=== PATIENT | male | born 1995 | race Caucasian/White ===

== ENCOUNTER 2016-04-30 00:28 | Emergency (ER) | payer MEDICAID, OTHER ==
[2016-04-30] MEDS ORDERED: ASPIRIN 81 MG CHEWABLE TAB PO ONE (00:45)
[2016-04-30] MEDS ORDERED: IPRATROPIUM/ALBUTEROL 3 ML DEYVIAL IH ONE (00:46)
--- NOTE | 2016-04-30 00:49 | EDPHY ---
H & P Stated Complaint: COUGH 3 WKS,NOW LEFT CHEST PAIN, DIZZY - Personal History Current Tetanus/Diphtheria Vaccine: Yes - Medical/Surgical History Hx Asthma: No Hx Chronic Respiratory Disease: No Hx Diabetes: No Hx Cardiac Disease: No Hx Renal Disease: No Hx Cirrhosis: No Hx Alcoholism: No Hx HIV/AIDS: No Hx Splenectomy or Spleen Trauma: No Other PMH: none - Social History Smoking Status: Current some day smoker Time Seen by Provider: 04/30/16 00:36 HPI/ROS: CHIEF COMPLAINT: Left-sided chest pain, cough x3 weeks HISTORY OF PRESENT ILLNESS: 21-year-old male complaining of left-sided chest pain and nonproductive cough for 3 weeks. No dyspnea. No back pain. No syncope or near syncope. Pain is reproducible with deep inspiration with palpation of the left sternal border. Smokes marijuana intermittently. No cocaine use. No family or personal history of premature coronary artery disease. No family or personal history of coagulopathic disorder. No calf pain or cramping. REVIEW OF SYSTEMS: A ten point review of systems was performed and is negative with the exception of the items mentioned in the HPI PAST MEDICAL & SURGICAL HISTORY: no known history of coagulopathic disorder, coronary artery disease. SOCIAL HISTORY: smokes marijuana intermittently. No cocaine use. No tobacco use. FAMILY HISTORY: No family history of coagulopathic disorder or premature coronary artery disease. PHYSICAL EXAM (Prior to examination, patient consented to physical exam, hands were washed and my usual and customary physical exam procedures followed) 1) GENERAL: Well-developed, well-nourished, alert and oriented. Appears anxious 2) HEAD: Normocephalic, atraumatic 3) HEENT: Pupils equal, round, reactive to light bilaterally. Sclera anicteric. Nasopharynx, oropharynx, clear, no lesions. Ears bilaterally with normal tympanic membranes. 4) NECK: Full range of motion, no meningeal signs. No bruit 5) LUNGS: Clear auscultation bilaterally, no wheezes, no rhonchi, no retractions. Left chest wall tender to palpation at the costosternal border 6) HEART: Regular rate and rhythm, no murmur, no heave, no gallop. 7) ABDOMEN: No guarding, no rebound, no focal tenderness, negative McBurney's, negative Goetz's, negative Rovsing's, negative peritoneal sign, 8) MUSCULOSKELETAL: No peripheral edema or discoloration. negative Homans no palpable cord 9) BACK: No CVA tenderness, . 10) SKIN: No rash, no petechiae. DIFFERENTIAL DIAGNOSIS: In no particular order, including but not limited to myocardial ischemia, pulmonary embolus, chest wall pain, pleural inflammation and pulmonary infectious causes. (Makayla Feliz) Constitutional: Initial Vital Signs Temperature (C) 36.9 C 04/30/16 00:32 Heart Rate 107 H 04/30/16 00:32 Respiratory Rate 24 H 04/30/16 00:32 Blood Pressure 111/74 04/30/16 00:32 O2 Sat (%) 95 04/30/16 00:32 O2 Delivery Mode Room Air Allergies/Adverse Reactions: No Known Allergies Allergy (Unverified 04/30/16 00:32) Home Medications: Medication Instructions Recorded AZITHROMYCIN [Z-PACK] 500 mg PO DAILY #1 packet 04/30/16 Albuterol [Proventil Inhaler HFA 1 - 2 puffs IH Q4PRN PRN #1 mdi 04/30/16 (*)] Benzonatate [Tessalon Pearles (RX)] 200 mg PO TID PRN #15 cap 04/30/16 Ibuprofen [Motrin (*)] 600 mg PO Q6 #15 tab 04/30/16 Medical Decision Making ED Course/Re-evaluation: 2:10 a.m.: Re-evaluation. Discussed his diagnostic results, normal sinus EKG, normal chest x-ray negative D-dimer negative troponin. Think that pulmonary embolus less likely in this patient. Doubt aortic dissection. Doubt [place]. He has focal tenderness left sternal border which may be secondary to acute costochondritis. We discussed NSAIDs. I also think that given the longevity of his symptoms of cough a trial of antibiotics is appropriate. Prescribed azithromycin as well as Tessalon Perles. Usual and customary chest pain precautions instructions provided. Discussed case Dr. Trevizo in ER> (Makayla Feliz) PHYSICIAN DOCUMENTATION: The patient was evaluated and managed by the Physician Blood Tester. My co- signature indicates that I have reviewed this chart and I agree with the findings and plan of care as documented. I am the secondary supervising physician. (Ruby Trevizo) - Data Points Laboratory Results: Laboratory Results 04/30/16 01:03 04/30/16 01:03 04/30/16 01:03 WBC 10.37 H 10^3/uL (3.80-9.50) RBC 5.14 10^6/uL (4.40-6.38) Hgb 15.5 g/dL (13.7-17.5) Hct 45.6 % (40.0-51.0) MCV 88.7 fL (81.5-99.8) MCH 30.2 pg (27.9-34.1) MCHC 34.0 g/dL (32.4-36.7) RDW 12.3 % (11.5-15.2) Plt Count 246 10^3/uL (150-400) MPV 10.1 fL (8.7-11.7) Neut % (Auto) 74.9 H % (39.3-74.2) Lymph % (Auto) 14.1 L % (15.0-45.0) [place] % (Auto) 10.0 % (4.5-13.0) Eos % (Auto) 0.2 L % (0.6-7.6) Baso % (Auto) 0.4 % (0.3-1.7) Nucleat RBC Rel Count 0.0 % (0.0-0.2) Absolute Neuts (auto) 7.77 H 10^3/uL (1.70-6.50) Absolute Lymphs (auto) 1.46 10^3/uL (1.00-3.00) Absolute Monos (auto) 1.04 H 10^3/uL (0.30-0.80) Absolute Eos (auto) 0.02 L 10^3/uL (0.03-0.40) Absolute Basos (auto) 0.04 10^3/uL (0.02-0.10) Absolute Nucleated RBC 0.00 10^3/uL (0-0.01) Immature Gran % 0.4 % (0.0-1.1) Immature Gran # 0.04 10^3/uL (0.00-0.10) D-Dimer < 0.27 ug/mLFEU (0.00-0.50) Sodium 143 mEq/L (134-144) Potassium 3.6 mEq/L (3.5-5.2) Chloride 107 mEq/L (97-110) Carbon Dioxide 22 mEq/l (22-31) Anion Gap 14 mEq/L (8-16) BUN 15 mg/dL (7-23) Creatinine 0.9 mg/dL (0.7-1.3) Estimated GFR > 60 Glucose 102 H mg/dL (70-100) Calcium 9.2 mg/dL (8.5-10.4) Troponin I < 0.012 ng/mL (0-0.034) Medications Given: Discontinued Medications Albuterol/Ipratropium (Duoneb) 3 ml IH EDNOW ONE Stop: 04/30/16 00:47 Last Admin: 04/30/16 01:05 Dose: 3 ml Aspirin (Aspirin) 324 mg PO EDNOW ONE Stop: 04/30/16 00:46 Last Admin: 04/30/16 01:05 Dose: 324 mg Departure - Departure Disposition: Home, Routine, Self-Care Clinical Impression: Cough, Acute costochondritis Condition: Good Instructions: Chest Pain (ED) Additional Instructions: Seek medical attention if you develop new or worsening chest pain, if you develop new or worsening shortness of breath, or any other symptoms that concern you. Referrals: [facility] [Outside] - 2-3 days, call for appt. Prescriptions: Ibuprofen [Motrin (*)] 600 mg PO Q6 #15 tab Albuterol [Proventil Inhaler HFA (*)] 1 - 2 puffs IH Q4PRN PRN #1 mdi PRN Reason: Cough, Moderate Benzonatate [Tessalon Pearles (RX)] 200 mg PO TID PRN #15 cap PRN Reason: Cough, Moderate AZITHROMYCIN [Z-PACK] 500 mg PO DAILY #1 packet
--- NOTE | 2016-04-30 01:01 | CPEKG ---
Heart Rate: 92 RR Interval: 652 P-R Interval: 132 QRSD Interval: 114 QT Interval: 336 QTC Interval: 416 P [place]: 21 QRS [place]: 85 T Wave [place]: 28 EKG Severity - ABNORMAL ECG - EKG Impression: SINUS RHYTHM EKG Impression: NONSPECIFIC INTRAVENTRICULAR CONDUCTION DELAY Electronically Signed By: Ruby Trevizo 30-Apr-2016 08:18:57
[2016-04-30 01:13] LABS: % IMMATURE GRANULYOCYTES 0.4 % (0.0-1.1); ABSOLUTE IMMATURE GRANULOCYTES 0.04 10^3/uL (0.00-0.10); ADD DIFF? NO; ADD MORPH? NO; ADD SCAN? NO; ATYPICAL LYMPHOCYTE FLAG 20 (0-99); FRAGMENT RBC FLAG 0 (0-99); HEMATOCRIT 45.6 % (40.0-51.0); HEMOGLOBIN 15.5 g/dL (13.7-17.5); LEFT SHIFT FLG 10 (0-99); LIPEMIA HEMOLYSIS FLAG 90 (0-99); MEAN CELL HEMOGLOBIN 30.2 pg (27.9-34.1); MEAN CELL VOLUME 88.7 fL (81.5-99.8); MEAN PLATELET VOLUME 10.1 fL (8.7-11.7); PLATELET CLUMPS FLAG 30 (0-99); PLATELET COUNT 246 10^3/uL (150-400); RED BLOOD CELL COUNT 5.14 10^6/uL (4.40-6.38); RED CELL DISTRIBUTION WIDTH 12.3 % (11.5-15.2)
[2016-04-30 01:28] LABS: ANION GAP 14 mEq/L (8-16); CALCIUM 9.2 mg/dL (8.5-10.4); CARBON DIOXIDE 22 mEq/l (22-31); CHLORIDE 107 mEq/L (97-110); CREATININE 0.9 mg/dL (0.7-1.3); GLOMERULAR FILTRATION RATE > 60; GLUCOSE 102 mg/dL (70-100); POTASSIUM 3.6 mEq/L (3.5-5.2); SODIUM 143 mEq/L (134-144)
[2016-04-30 01:40] LABS: TROPONIN I < 0.012 ng/mL (0-0.034)
[2016-04-30 02:43] VITALS: BP 121/74; PULSE 66; RESP 18; TEMP 97.9; O2SAT 96
--- NOTE | 2016-04-30 08:27 | DX ---
Chest, PA and Lateral History: Chest pain Comparison: None Findings: Mildly prominent lung volumes and bronchial wall thickening suggest airways disease. A smal l 7-8 mm nodular density in the right midlung overlying the anterior right third rib, where it crosse s the posterior right seventh rib may represent a bone island in the rib or a small pulmonary nodule, possibly a small mucous plug. Lungs are clear, without infiltrate or consolidation. Heart size and p ulmonary vascularity are normal. There is no adenopathy or mass lesion. There is no pleural effusion or pneumothorax. Bones are unremarkable for age. Impression: 1. Suspect airways disease. 2. Small right midlung nodular density. If there are any old outside x-rays, we would be happy to rev iew them to assess for interval change. Consider short interval x-ray evaluation including a PA chest and right rib x-rays to assess for change. Results discussed with Dr. Beal at 8:24 AM.
== END 2016-04-30 02:43 | disposition home or self-care (01) ==
DX: R05 Cough (principal); M94.0 Chondrocostal junction syndrome [Tietze]; F17.200 Nicotine dependence, unspecified, uncomplicated; I25.10 Atherosclerotic heart disease of native coronary artery without angina pectoris

== ENCOUNTER 2018-06-07 22:01 | Emergency (ER) | payer MEDICAID ==
[2018-06-07 22:06] VITALS: BP 150/72
[2018-06-07] MEDS ORDERED: IPRATROPIUM/ALBUTEROL 3 ML DEYVIAL IH ONE (22:47)
--- NOTE | 2018-06-07 22:51 | EDPHY ---
H & P Stated Complaint: cough, SOB, sore throat, tight in chest,fever-like x4 days Time Seen by Provider: 06/07/18 22:08 HPI/ROS: CHIEF COMPLAINT: Cough, shortness of breath HISTORY OF PRESENT ILLNESS: 23-year-old male presents with cough and shortness of breath. Onset of cough, runny nose and sore throat 1 week ago. Gradually increasing moderate cough, associated with shortness of breath yesterday evening. No shortness of breath today. Subjective fever and chills. Tolerating oral fluids well. Did not receive a flu vaccination this year. REVIEW OF SYSTEMS: complete 10 point ROS reviewed and is negative except for the noted elements in the HPI - Personal History Current Tetanus/Diphtheria Vaccine: Yes Current Tetanus Diphtheria and Acellular Pertussis (TDAP): Yes Tetanus Vaccine Date: 2017 - Medical/Surgical History Hx Asthma: No Hx Chronic Respiratory Disease: No Hx Diabetes: No Hx Cardiac Disease: No Hx Renal Disease: No Hx Cirrhosis: No Hx Alcoholism: No Hx HIV/AIDS: No Hx Splenectomy or Spleen Trauma: No Other PMH: none - Social History Smoking Status: Current some day smoker Alcohol Use: Sober Drug Use: Marijuana - Physical Exam Exam: General Appearance: Alert, pleasant, nontoxic-appearing Eyes: Pupils equal and round, no conjunctival injection ENT, Mouth: Mucous membranes moist Neck: Normal inspection Respiratory: expiratory wheezing at the left lung base Cardiovascular: Regular rate and rhythm Gastrointestinal: Abdomen is soft and nontender Neurological: A&O, nonfocal, normal gait Skin: Warm and dry Extremities: Normal inspection Psychiatric: Mood and affect normal Constitutional: Initial Vital Signs Heart Rate 90 06/07/18 22:03 Respiratory Rate 20 06/07/18 22:03 Blood Pressure 150/72 H 06/07/18 22:03 O2 Sat (%) 93 06/07/18 22:03 O2 Delivery Mode Room Air Allergies/Adverse Reactions: No Known Allergies Allergy (Unverified 06/07/18 22:03) Home Medications: Medication Instructions Recorded Azithromycin [Zithromax] 250 mg PO DAILY #4 tab 06/07/18 Medical Decision Making - Diagnostics Imaging Results: Chest x-ray independently reviewed by me reveals a left lower lobe infiltrate. Imaging: I viewed and interpreted images myself ED Course/Re-evaluation: This patient presents with cough, shortness of breath and wheezing. Chest x- ray reveals a possible left lower lobe infiltrate. He is nontoxic-appearing and oxygen saturation is normal. Tolerating oral fluids well. A DuoNeb was given. Chest CTA after duoneb. Prescription for Zithromax for possible pneumonia. Warning signs discussed. - Data Points Medications Given: Discontinued Medications Albuterol Sulfate (Proventil Inh [place]) 1 mdi TAKEHOME EDNOW ONE Stop: 06/07/18 22:53 Last Admin: 06/07/18 23:07 Dose: 1 mdi Albuterol/Ipratropium (Duoneb) 3 ml IH EDNOW ONE Stop: 06/07/18 22:48 Last Admin: 06/07/18 23:06 Dose: 3 ml Azithromycin (Zithromax) 500 mg PO EDNOW ONE PRN Reason: Protocol Stop: 06/07/18 22:54 Last Admin: 06/07/18 23:05 Dose: 500 mg Departure - Departure Disposition: Home, Routine, Self-Care Clinical Impression: Pneumonia Qualifiers: Pneumonia type: due to unspecified organism Laterality: left Lung location: lower lobe of lung Qualified Code(s): J18.1 - Lobar pneumonia, unspecified organism Condition: Good Instructions: Albuterol (By breathing), Bacterial Pneumonia (ED) Additional Instructions: Albuterol inhaler 2 puffs every 6 hours as needed for cough and wheezing. Drink plenty of fluids. Ibuprofen 600 mg 3 times daily for sore throat and fever. Referrals: Viviane Chaney MD [Medical Doctor] - As per Instructions Prescriptions: Azithromycin [Zithromax] 250 mg PO DAILY #4 tab
[2018-06-07] MEDS ORDERED: ALBUTEROL INH PREPACK MDI TAKEHOME ONE (22:52)
[2018-06-07] MEDS ORDERED: AZITHROMYCIN 250 MG TAB PO ONE (22:53)
== END 2018-06-07 23:26 | disposition home or self-care (01) ==
DX: J18.1 Lobar pneumonia, unspecified organism (principal); M51.34 Other intervertebral disc degeneration, thoracic region; Z87.891 Personal history of nicotine dependence